=== PATIENT | female | born 1965 | race Caucasian/White ===

== ENCOUNTER 2020-03-21 14:55 | Observation (INO) | payer OTHER, SELFPAY ==
[2020-03-21 17:16] VITALS: BMI 27.2
[2020-03-21] MEDS ORDERED: Acetaminophen 650 MG Suppository PR PRN (17:28)
[2020-03-21] MEDS ORDERED: Guaifenesin DM 100-10/5 ML UDCUP PO PRN (17:28)
[2020-03-21] MEDS ORDERED: Ondansetron ODT 4 MG TAB PO PRN (17:28)
[2020-03-21] MEDS ORDERED: Ondansetron PF 4 MG/2 ML Vial IVP PRN (17:28)
[2020-03-21] MEDS ORDERED: Senokot S 8.6-50 MG TAB PO PRN (17:28)
[2020-03-21] MEDS ORDERED: Labetalol HCl 100 MG/20 ML VIAL SLOW IVP PRN (17:28)
[2020-03-21] MEDS: Acetaminophen 325 MG TAB PO PRN (18:25)
--- NOTE | 2020-03-21 18:35 | ULT ---
BILATERAL CAROTID DUPLEX ULTRASOUND: HISTORY: History of TIA and stroke TECHNIQUE: Grayscale, color-flow and spectral Doppler ultrasound imaging of the extracranial carotid artery syst ems and vertebral arteries was performed bilaterally. FINDINGS: There is mild intimal thickening and atherosclerotic disease involving the common carotid and interna l carotid arteries. The peak systolic velocity in the right ICA measures 84.6 cm/s. The peak systolic velocity in the ri ght CCA measures 65.3 cm/s. The peak systolic velocity in the left ICA measures 85.1 cm/s. The peak systolic velocity in the l eft CCA measures 82.0 cm/s. The right IC/CC ratio is1.30. The left IC/CC ratio is 1.04. Vertebral flow: antegrade, bilaterally. . IMPRESSION: No hemodynamically significant stenosis of Both ICAs.
--- NOTE | 2020-03-21 19:02 | PDOC.HHP ---
Hospitalist HPI - History of Present Illness Bilateral vision loss History of Present Illness: The patient is a 54-year-old female with a past medical history significant for iron deficiency anemia and depression that presents to the emergency department via personal vehicle for the above complaint. The patient reports acute vision loss this morning. She reports while sitting down at work at approximately 1045, she lost vision bilaterally. She reports that her eyes "went cross eyed". She says her vision was blurry, unable to make out any objects, but it was not dark/blackout. She reports it was painless. She denies any chemical exposures. She denies any known trauma. She denies any recent infection or drainage from her eyes. Denies any changes in speech, difficulty swallowing or focal motor deficit. She denies tinnitus, headache, fever, neck stiffness or jaw claudication. She reports that the episode lasted approximately 5 to 6 minutes and then resolved spontaneously. She went to nursing staff, her vital signs were stable. She was released back to full duty. She reports that brandon roximately 1 hour later, the same symptoms returned. She lost vision to both eyes. She went back to see the staff nurse, her blood pressure was elevated, although she does not recall the number. She called her and he drove her to [facility] for further evaluation. At the [facility], EKG sinus bradycardia, 58 bpm, no ST elevations. CT brain negative for any acute process. Labs unremarkable. Covid negative. Given full dose aspirin. ED Course: Direct admit. Hospitalist ROS - Review of Systems Constitutional: denies: fever, chills Eyes: reports: vision change (Bilateral, painless). denies: pain, conjunctivae inflammation, eyelid inflammation, redness ENT: denies: ear pain, ear discharge, nose discharge, nose congestion, mouth swelling Respiratory: denies: cough, dry, shortness of breath, SOB with excertion, pleuritic pain, sputum, wheezing Cardiovascular: denies: chest pain, palpitations, edema, light headedness Gastrointestinal: denies: nausea, vomiting, abdominal pain, diarrhea, constipation, hematochezia Genitourinary: denies: dysuria, frequency, hematuria Musculoskeletal: denies: neck pain, arm pain Skin: denies: bruising Neurological: denies: weakness, incoordination, change in speech, confusion All other systems reviewed; all pertinent +/- noted in HPI/Subj - Medication Medications: Active Medications Generic Name Dose Route Start Last Admin Trade Name Figueroaq PRN Reason Stop Dose Admin Acetaminophen 650 mg 03/21/20 17:28 03/21/20 18:25 Acetaminophen 325 Mg Tab PO 650 mg Q4H PRN Administration Headache/Fever/Mild Pain (1-3) Home medications: 1. Garlic 1000 mg p.o. daily 2. Ascorbic acid 1000 mg p.o. daily 3. Vitamin D3 2000 units p.o. daily 4. Celexa 20 mg p.o. nightly 5. Cyanocobalamin 1000 mcg p.o. daily 6. Ferrous sulfate 325 mg p.o. daily 7. Fish oil 1 capsule p.o. daily 8. Hydroxyzine 25 mg p.o. twice daily 9. Potassium chloride 10 mEq p.o. daily Allergies: Hydrocodone Hospitalist History - Past Medical History Source: patient, RN notes reviewed Heme/Onc: reports: Iron deficiency anemia Psych: reports: Anxiety - Past Surgical History Past Surgical History: reports: Hysterectomy (Partial), Other (Tummy tuck, breast lift) - Family History Family History: reports: cardiac disorder (Mother) - Social History Smoking Status: Current every day smoker Tobacco Type: cigarettes (2 packs/day times greater than 35 years, currently half pack per day x3 months) Alcohol: reports: None Drugs: reports: none Living Situation: With Family Occupation: Works Activity level: independent ambulation - Exam General Appearance: NAD, awake alert Eye: PERRL, anicteric sclera ENT: normocephalic atraumatic Neck: supple, symmetric, no JVD Heart: RRR, no murmur, no gallops, no rubs, normal peripheral pulses Respiratory: CTAB, no wheezes, no rales, no ronchi, normal chest expansion, no tachypnea Gastrointestinal: soft, non-tender, normal bowel sounds, no bruit, no guarding, no rigidity Extremities: no cyanosis, no edema Skin: no rashes Neurological: cranial nerve grossly intact, no focal deficits Musculoskeletal: normal tone, normal strength Psychiatric: normal affect, A&O x 3 Hospitalist Results - Labs Lab results: Sodium 143, potassium 4.1, chloride 106, BUN 16, creatinine 0.6, glucose 93, calcium 9.9 WBC 6.8, hemoglobin 12.2, hematocrit 34.1, platelets 326 PT 10.5, INR 0.9 Covid negative - EKG Interpretation EKG: Reviewed reviewed EKG at [facility] Sinus bradycardia 50 bpm, no ST elevations - Radiology Interpretation CT scan - head Status: report reviewed by me Additional Comment: Negative for acute process. Hospitalist H&P A/P - Problem (1) TIA (transient ischemic attack) Code(s): G45.9 - TRANSIENT CEREBRAL ISCHEMIC ATTACK, UNSPECIFIED Status: Acute (2) Bilateral visual loss Code(s): H54.3 - UNQUALIFIED VISUAL LOSS, BOTH EYES Status: Acute (3) Anxiety Code(s): F41.9 - ANXIETY DISORDER, UNSPECIFIED Status: Chronic (4) Iron deficiency anemia Code(s): D50.9 - IRON DEFICIENCY ANEMIA, UNSPECIFIED Status: Chronic - Plan Plan: 54/F with PMH anxiety and iron deficiency anemia presents for bilateral vision loss, resolved on admission. Transferred from [facility] hospital [facility]. Admit to stroke unit, observation status. Expected length of stay less than [address] brain negative for acute process. EKG sinus bradycardia, 50 bpm, no ST elevations. Labs unremarkable. Covid negative. Given aspirin at [facility]. #TIA Obtain MRI, carotid Doppler, echocardiogram. Continue aspirin and add statin. Consult neurology and stroke team. Check FLP, B12 and folate, TSH. Permissive hypertension. Neurochecks. #Bilateral vision loss Resolved upon admission. Likely related to problem #1. #Anxiety Denies SI/HI. Restart home dose Celexa. #Iron deficiency anemia Chronic, stable. Presented hemoglobin 12.2/hematocrit 34.1. Lovenox for DVT prophylaxis. Pepcid for GI prophylaxis. Full code. Discussed the case with Dr. Montoya.
[2020-03-21] MEDS: hydrOXYzine 25 MG TAB PO SCH (20:32)
[2020-03-21] MEDS: Famotidine 20 MG TAB PO SCH (20:32)
[2020-03-21] MEDS ORDERED: Atorvastatin Calcium 40 MG TAB PO SCH (21:00)
[2020-03-21] MEDS ORDERED: Citalopram 20 MG TAB PO SCH (21:00)
[2020-03-22] MEDS: Acetaminophen 325 MG TAB PO PRN (05:18)
[2020-03-22 05:44] LABS: Anion Gap 10 mmol/L (10-20); BUN (Urea Nitrogen) 17 mg/dL (9.8-20.1); Calc. Creatinine Clearance 120 mL/min (70-130); Calcium 9.3 mg/dL (7.8-10.44); Carbon Dioxide 28 mmol/L (22-29); Cardiac Risk 5.5 (Less than 4.5); Chloride 105 mmol/L (98-107); Cholesterol 230 mg/dl (< 200 Desired); Estimated GFR-MDRD 90; Glucose 94 mg/dL (70-105); HDL Cholesterol 42 mg/dL (>60 Neg Risk); LDL Cholesterol, Calculated 168 mg/dL; Potassium 3.9 mmol/L (3.5-5.1); Sodium 139 mmol/L (136-145); Triglycerides 99 mg/dL (Less than 150)
[2020-03-22 06:10] LABS: Thyroid Stimulating Hormone 1.6193 uIU/mL (0.35-4.94)
[2020-03-22 06:19] LABS: Band 2 % (5-11); Eosinophils 4 % (0-10); Hemoglobin 12.3 g/dL (12.0-16.0); Lymphocytes 68 % (21-51); MDiff Complete? YES; Mean Corpuscular HGB CONC 33.9 g/dL (32.0-36.0); Mean Corpuscular Hemoglobin 33.7 pg (27.0-31.0); Mean Corpuscular Volume 99.5 fL (78.0-98.0); Mean Platelet Volume 6.6 fL (7.4-10.4); Monocytes 6 % (0-10); Neutrophil 20 % (42-75); Platelet Count 315 thou/uL (130-400); RBC Distribution Width 10.9 % (11.5-14.5); Red Blood Cell (RBC) Count 3.64 mill/uL (4.20-5.40); White Blood Cell (WBC) Count 5.7 thou/uL (4.8-10.8)
--- NOTE | 2020-03-22 07:42 | PDOC.HOSPP ---
- Subjective Encounter Date: 03/22/20 Encounter Time: 09:00 Subjective: Patient with mild blurry vision on and off since yesterday. Seeing well now. No other symptoms. Just got back from MRI. - Objective Vital Signs & Weight: Vital Signs (12 hours) Temp Pulse Resp BP Pulse Ox 03/22/20 04:10 97.7 F 57 L 16 116/73 97 03/22/20 00:00 97.6 F 57 L 14 113/80 96 03/21/20 20:00 97.9 F 58 L 16 112/62 98 Weight Weight 179 lb 0.246 oz Result Diagrams: 03/22/20 04:46 03/22/20 04:46 Hospitalist ROS - Review of Systems Constitutional: denies: fever, chills Respiratory: denies: cough, shortness of breath Cardiovascular: denies: chest pain, palpitations Gastrointestinal: denies: nausea, vomiting, abdominal pain Genitourinary: denies: dysuria, hematuria Neurological: denies: weakness, numbness, change in speech, confusion, seizures - Medication Medications: Active Medications Generic Name Dose Route Start Last Admin Trade Name Freq PRN Reason Stop Dose Admin Acetaminophen 650 mg 03/21/20 17:28 03/22/20 05:18 Acetaminophen 325 Mg Tab PO 650 mg Q4H PRN Administration Headache/Fever/Mild Pain (1-3) Atorvastatin Calcium 80 mg 03/21/20 21:00 03/21/20 20:31 Atorvastatin Calcium 40 Mg Tab PO 80 mg HS KIM Administration Citalopram Hydrobromide 20 mg 03/21/20 21:00 03/21/20 20:32 Citalopram 20 Mg Tab PO 20 mg HS KIM Administration Famotidine 20 mg 03/21/20 21:00 03/21/20 20:32 Famotidine 20 Mg Tab PO 20 mg BID KIM Administration Hydroxyzine HCl 25 mg 03/21/20 21:00 03/21/20 20:32 Hydroxyzine 25 Mg Tab PO 25 mg BID KIM Administration - Exam General Appearance: NAD, awake alert ENT: moist mucosa Heart: RRR, no murmur, no gallops, no rubs Respiratory: CTAB, no wheezes, no rales, no ronchi Gastrointestinal: soft, non-tender, non-distended, normal bowel sounds Neurological: cranial nerve grossly intact, no focal deficits Psychiatric: normal affect, normal behavior, A&O x 3 Hosp A/P (1) Bilateral visual loss Code(s): H54.3 - UNQUALIFIED VISUAL LOSS, BOTH EYES Status: Acute (2) TIA (transient ischemic attack) Code(s): G45.9 - TRANSIENT CEREBRAL ISCHEMIC ATTACK, UNSPECIFIED Status: Acute (3) Anxiety Code(s): F41.9 - ANXIETY DISORDER, UNSPECIFIED Status: Chronic (4) Iron deficiency anemia Code(s): D50.9 - IRON DEFICIENCY ANEMIA, UNSPECIFIED Status: Chronic Plan: normal H/H here, does have some Folic Acid deficiency - Plan Patient with transient vision loss. Normal CT at outside facility. Carotid U/S with mild atherosclerosis but no stenosis. TC and LDL mildly elevated. MRI pending. Will continue ASA and Statin. Neurology consult. Likely home and outpatient f/u with ophthamology if MRI normal. DVT proph: Lovenox GI proph: Famotidine
[2020-03-22] MEDS ORDERED: Ferrous Sulfate 325 MG TAB PO SCH (08:00)
[2020-03-22] MEDS ORDERED: Potassium Chloride 10 MEQ TAB PO SCH (08:00)
[2020-03-22] MEDS ORDERED: Aspirin 81 mg Enteric Coated Tablet PO SCH (09:00)
[2020-03-22] MEDS ORDERED: Ascorbic Acid 500 mg Chewable Tablet PO SCH (09:00)
[2020-03-22] MEDS ORDERED: Fish Oil 1,000 MG CAP PO SCH (09:00)
[2020-03-22] MEDS ORDERED: FLU VACC QS2020-21(6MOS UP)/PF 60 MCG/0.5 ML SYRINGE IM ONE (09:00)
[2020-03-22] MEDS ORDERED: Enoxaparin Sodium 40 MG/0.4 ML SYRINGE SC SCH (09:00)
[2020-03-22] MEDS ORDERED: Cyanocobalamin (Vitamin B-12) 1,000 MCG TAB PO SCH (09:00)
[2020-03-22] MEDS ORDERED: Cholecalciferol 1,000 UNITS (25 MCG) TAB PO SCH (09:00)
[2020-03-22] MEDS: hydrOXYzine 25 MG TAB PO SCH (09:44)
[2020-03-22] MEDS: Famotidine 20 MG TAB PO SCH (09:46)
--- NOTE | 2020-03-22 10:00 | MRI ---
BRAIN MRI WITHOUT CONTRAST: DATE: 03/22/2020. COMPARISON: None. HISTORY: Stroke. TECHNIQUE: The axial diffusion weighted imaging demonstrates no evidence for acute infarction. FINDINGS: The axial gradient echo imaging demonstrates no evidence for intracranial hemorrhage. There is polypoid mucosal thickening within the alveolar recess of the maxillary sinus on the right. Arterial flow voids at the axial level of the skull base appear grossly unremarkable on the T2 weigh noel imaging. There are a few subcentimeter foci of T2 and FLAIR hyperintensity within the white jadyn er which may signify a minimal degree of small-vessel disease. Regional bone marrow signal intensity within normal limits. IMPRESSION: No evidence for acute infarction or intracranial hemorrhage. POS: [facility]
--- NOTE | 2020-03-22 11:39 | CON ---
NEUROLOGY CONSULTATION DATE OF CONSULTATION: 03/22/2020 REASON FOR CONSULTATION: Bilateral vision loss, rule out CVA. HISTORY OF PRESENT ILLNESS: Ms. Rangel is a 54-year-old female with medical history significant for iron-deficiency anemia and depression, presented to the emergency room because of an episode of loss of vision. Per patient, she was sitting down at work at approximately around 1045 hours on 03/21/2020 when she lost her vision. Per the patient, she went cross-eyed and then her vision was blurred and she saw shining lights in front of her eyes and followed by loss of vision. She denies any eye pain or pain on moving the eyes. She denies any fall, head injury, or trauma. The patient denies any focal weakness, nausea, vomiting, headache, chest pain, abdominal pain, recent exposure to COVID or sick contacts. She denies any problem with speech or swallowing associated with the episode. The episode resolved spontaneously at work, then she was released back to full duty, and one-hour later, she had the similar symptoms and her blood pressure was elevated Per the patient, she has been having mild spells of confusion off and on since the last few months. She called her from work and decided to come to the emergency room for further evaluation. In the emergency room, EKG showed sinus bradycardia and CT scan did not reveal any acute intracranial pathology. She was COVID negative. She was given aspirin and admitted for further evaluation. REVIEW OF SYSTEMS: All systems were reviewed and were negative except the pertinent positives and negatives mentioned in the HPI. MEDICATIONS: 1. Garlic 1000 mg p.o. daily. 2. Ascorbic acid 1000 mg p.o. daily. 3. Vitamin D3 of 2000 units p.o. daily. 4. Celexa 20 mg p.o. nightly. 5. Cyanocobalamin 1000 mcg p.o. daily. 6. Ferrous sulfate 325 mg p.o. daily. 7. Fish oil one capsule p.o. daily. 8. Hydroxyzine 25 mg p.o. daily. 9. Potassium chloride 10 mEq p.o. daily. ALLERGIES: HYDROCODONE. PAST MEDICAL HISTORY: 1. Iron-deficiency anemia. 2. Anxiety. 3. Depression. PAST SURGICAL HISTORY: 1. Partial hysterectomy. 2. Tummy tuck. FAMILY HISTORY: No family history significant for coronary artery disease. SOCIAL HISTORY: The patient is , lives with family. Smokes 2 packs per day for the last 35 years and is currently half pack per day for the last 3 months. Denies alcohol or illegal drug use. Home medications: 1. Garlic 1000 mg p.o. daily 2. Ascorbic acid 1000 mg p.o. daily 3. Vitamin D3 2000 units p.o. daily 4. Celexa 20 mg p.o. nightly 5. Cyanocobalamin 1000 mcg p.o. daily 6. Ferrous sulfate 325 mg p.o. daily 7. Fish oil 1 capsule p.o. daily 8. Hydroxyzine 25 mg p.o. twice daily 9. Potassium chloride 10 mEq p.o. daily Allergies: Hydrocodone Vital Signs & Weight: Vital Signs (12 hours) Temp Pulse Resp BP Pulse Ox 03/22/20 04:10 97.7 F 57 L 16 116/73 97 03/22/20 00:00 97.6 F 57 L 14 113/80 96 03/21/20 20:00 97.9 F 58 L 16 112/62 98 Weight Weight 179 lb 0.246 oz : Active Medications Generic Name Dose Route Start Last Admin Trade Name Freq PRN Reason Stop Dose Admin Acetaminophen 650 mg 03/21/20 17:28 03/22/20 05:18 Acetaminophen 325 Mg Tab PO 650 mg Q4H PRN Administration Headache/Fever/Mild Pain (1-3) Atorvastatin Calcium 80 mg 03/21/20 21:00 03/21/20 20:31 Atorvastatin Calcium 40 Mg Tab PO 80 mg HS KIM Administration Citalopram Hydrobromide 20 mg 03/21/20 21:00 03/21/20 20:32 Citalopram 20 Mg Tab PO 20 mg HS KIM Administration Famotidine 20 mg 03/21/20 21:00 03/21/20 20:32 Famotidine 20 Mg Tab PO 20 mg BID KIM Administration Hydroxyzine HCl 25 mg 03/21/20 21:00 03/21/20 20:32 Hydroxyzine 25 Mg Tab PO 25 mg BID KIM Administration PHYSICAL EXAMINATION: General Appearance: NAD, awake alert Eye: PERRL, anicteric sclera ENT: normocephalic atraumatic Neck: supple, symmetric, no JVD Heart: RRR, no murmur, no gallops, no rubs, normal peripheral pulses Respiratory: CTAB, no wheezes, no rales, no ronchi, normal chest expansion, no tachypnea Gastrointestinal: soft, non-tender, normal bowel sounds, no bruit, no guarding, no rigidity Extremities: no cyanosis, no edema Skin: no rashes Neurological: Mental status; the patient is alert and oriented to person, place, and time. Recent and remote memory intact. Speech is clear. Cranial nerves 2 through 12 intact. Motor; muscle tone and bulk are normal, strength 5/5 bilaterally. Sensory intact. Cerebellar, finger-nose testing intact. Gait deferred due to the patient's safety reason. DATA REVIEWED: I reviewed the labs, which essentially unremarkable. - EKG Interpretation EKG: Reviewed [facility] at [facility] Sinus bradycardia 50 bpm, no ST elevations - Radiology Interpretation CT scan - head Status: report reviewed by me Additional Comment: Negative for acute process. ASSESSMENT AND PLAN: (1) TIA (transient ischemic attack) Code(s): G45.9 - TRANSIENT CEREBRAL ISCHEMIC ATTACK, UNSPECIFIED Status: Acute (2) Bilateral visual loss Code(s): H54.3 - UNQUALIFIED VISUAL LOSS, BOTH EYES Status: Acute (3) Anxiety Code(s): F41.9 - ANXIETY DISORDER, UNSPECIFIED Status: Chronic (4) Iron deficiency anemia Code(s): D50.9 - IRON DEFICIENCY ANEMIA, UNSPECIFIED Status: Chronic Ms. Kelly Rangel is a 54-year-old woman who presented with 2 episodes of bilateral vision loss, which resolved on its own. Head CT reviewed, which was negative for acute intracranial pathology. MRI of the brain reviewed, which was negative for acute intracranial pathology. Most likely transient ischemic attack. Continue aspirin and high-intensity statin for secondary stroke prevention. Carotid Doppler reports reviewed, which was negative for hemodynamically significant stenosis. A 2D echo showed ejection fraction of 55% to 60%, no thrombus or patent foramen ovale. Strict control of blood pressure and blood glucose. Neuro checks every 4 hours. EEG to evaluate for mild episodes of confusion. Continue home medications. PT/OT/Speech. Continue medical management per primary team. Consider ophthalmology input regarding vision loss as outpatient. We will continue to follow. Thank you for the consult. Job ID: [id number] [facility] CENTERHank
[2020-03-22 11:44] VITALS: TEMP 97.7
[2020-03-22] MEDS ORDERED: Folic Acid 1 MG TAB PO SCH (14:15)
--- NOTE | 2020-03-22 14:16 | PDOC.EEG ---
Neurology EEG Report - Report Report: This EEG was performed using 24 channel [employer] video digital EEG machine with 24 disc electrode. This was an extended 2-hour 4 minutes of inpatient video EEG recording. Digital analysis of the EEG was done for spike and seizure detection which revealed no abnormalities. Background: The posterior background rhythm is 9 to 10 Hz. The background rhythm attenuates with eye opening enhances with eye closure. Hyperventilation: Not performed. Photic stimulation: Bioccipital symmetric driving response is observed Sleep: Drowsiness is observed. EEG diagnosis: Normal awake and drowsy EEG.
[2020-03-22 15:42] VITALS: BP 120/64
[2020-03-23] MEDS ORDERED: Folic Acid 1 MG TAB PO SCH (09:00)
--- NOTE | 2020-03-25 08:33 | DIS ---
DATE OF ADMISSION: 03/21/2020 DATE OF DISCHARGE: 03/22/2020 PRIMARY CARE PHYSICIAN: Lynnette Whatley. REASON FOR ADMISSION: TIA. DIAGNOSES AT DISCHARGE: 1. Bilateral vision loss, resolved. 2. Transient ischemic attack. 3. Anxiety. 4. History of iron deficiency anemia, now resolved, but with some folic acid deficiency. PROCEDURES: 1. Carotid ultrasound showing some mild atherosclerotic disease in bilateral common and internal carotid arteries, but with no significant stenosis. 2. MRI of the brain without contrast showing no evidence for acute infarction or intracranial hemorrhage. 3. EEG showing normal awake and drowsy EEG. 4. Echocardiogram showing ejection fraction of 50% to 55% with normal diastolic function. No other significant abnormalities. CONSULTATION: Neurology, Dr. Camacho. SUMMARY OF HOSPITAL COURSE: This is a 54-year-old female, who presented to an outside stand-alone emergency room secondary to bilateral vision loss. This happened first on the day of admission around 10:45 in the morning. She says that she became cross-eyed, her vision went blurry, she was unable to make any objects out, with no pain at the time, eventually resolved after about 5 to 6 minutes. Then an hour later, the same symptoms returned. She had some elevated blood pressure at that time when she went to the nurse's station and then she was driven to the ER by her . In the ER, she had a CT brain, was negative. Labs were negative. COVID was negative. She was given a full dose aspirin over there. Her EKG was normal except for some mild bradycardia. She was transferred to the hospital here, had above studies done. Dr. Camacho was consulted with Neurology. The patient's fasting lipid profile was checked with a cholesterol of 230 and an LDL of 168. Due to her history of anemia, she had vitamin B12 and folic acid checked. The vitamin B12 was elevated, but folic acid was low at 5.5. The remainder of her labs were all normal. The patient had no further symptoms during her hospitalization. She had normal eye and retinal exams in the emergency room, and had a normal MRI, normal EEG, she was diagnosed with TIA by Neurology, was recommended to stay on a baby aspirin a day and high-dose atorvastatin and follow up as an outpatient with her primary care doctor. She is also recommended to follow up with an tow operator. DISCHARGE MANAGEMENT: Discharged home. FOLLOWUP: Follow up with primary care physician next week and she is to call tow operator on Wednesday and set up a followup appointment. ACTIVITY: As tolerated. DIET: Healthy heart diet. DISCHARGE MEDICATIONS: 1. Aspirin 81 mg daily, 30 tablets dispensed. 2. Atorvastatin 80 mg daily, 30 tablets dispensed. 3. Folic acid 1 mg daily, 14 tablets dispensed. 4. Continue vitamin C 1000 mg daily. 5. Vitamin D3, 2000 units daily. 6. Celexa 20 mg at night. 7. Vitamin B12 of 1000 mcg daily. 8. Ferrous sulfate 325 mg daily. 9. Fish oil 1200 mg daily. 10. Atarax 25 mg twice a day. 11. Potassium chloride 10 mEq daily. 12. Garlic 1000 mg daily. Job ID: [id number]
== END 2020-03-22 16:12 | disposition home or self-care (01) ==
LOC: 2SE 14:55
PROVIDERS: ADMIT Emergency Medicine; ATTEND Emergency Medicine
DX: G45.9 Transient cerebral ischemic attack, unspecified (principal); F41.9 Anxiety disorder, unspecified; D50.9 Iron deficiency anemia, unspecified; E53.8 Deficiency of other specified B group vitamins; F17.210 Nicotine dependence, cigarettes, uncomplicated; F32.9 Major depressive disorder, single episode, unspecified; Z79.899 Other long term (current) drug therapy; Z88.5 Allergy status to narcotic agent; Z20.828 Contact with and (suspected) exposure to other viral communicable diseases
CPT/HCPCS: 36415; 70551; 80048; 80061; 82607; 82746; 84443; 85025; 90471; 90662; 90732; 93306; 93880; 95712; 95819; 95957; 96372; G0008; G0009; G0378; J1650

== ENCOUNTER 2022-09-02 14:54 | Emergency (ER) | payer SELFPAY ==
[2022-09-02 15:36] LABS: #Basophils 0.1 thou/uL (0.0-0.2); #Eosinphils 0.1 thou/uL (0.0-0.7); #Lymphocytes 4.8 thou/uL (1.20-3.40); #Monocytes 0.7 thou/uL (0.11-0.59); #Neutrophils 4.1 thou/uL (1.40-6.50); %Basophils 1.1 % (0.0-1.0); %Eosinophils 0.9 % (0.0-10.0); %Lymphocytes 48.9 % (21.0-51.0); %Monocytes 6.7 % (0.0-10.0); %Neutrophils 42.4 % (42.0-75.0); Hemoglobin 14.7 g/dL (12.0-16.0); Mean Corpuscular HGB CONC 34.6 g/dL (32.0-36.0); Mean Corpuscular Hemoglobin 32.7 pg (27.0-31.0); Mean Corpuscular Volume 94.3 fl (78.0-98.0); Mean Platelet Volume 7.2 fL (7.4-10.4); Platelet Count 353 10x3/uL (130-400); RBC Distribution Width 11.2 % (11.5-14.5); Red Blood Cell (RBC) Count 4.51 mill/uL (4.20-5.40); White Blood Cell (WBC) Count 9.8 10x3/uL (4.8-10.8)
[2022-09-02 15:58] LABS: ALT (SGPT) 41 U/L (8-55); AST (SGOT) 24 U/L (5-34); Albumin 4.8 g/dL (3.5-5.0); Alkaline Phosphatase 96 U/L (40-110); Anion Gap 16 mmol/L (10-20); BUN (Urea Nitrogen) 10 mg/dL (9.8-20.1); Bilirubin, Total 0.5 mg/dL (0.2-1.2); CK (CPK) 181 U/L (29-168); Calc. Creatinine Clearance 0 mL/min (70-130); Calcium 10.3 mg/dL (7.8-10.44); Carbon Dioxide 23 mmol/L (22-29); Chloride 104 mmol/L (98-107); Estimated GFR 79; Globulin 3.1 g/dL (2.4-3.5); Glucose 89 mg/dL (70-105); Lipase 34 U/L (8-78); Protein, Total 7.9 g/dL (6.0-8.3); Sodium 139 mmol/L (136-145)
[2022-09-02] MEDS ORDERED: Aspirin Chewable 81 MG TAB ONE (16:13)
[2022-09-02] MEDS ORDERED: LORazepam 2 MG/ML SYR.(CARPUJECT) ONE (16:13)
[2022-09-02] MEDS ORDERED: Nitroglycerin 2% Ointment 1 INCH/1 GM Packet ONE (16:13)
== END 2022-09-02 17:20 | disposition home or self-care (01) ==
LOC: ERS 14:54
DX: R07.2 Precordial pain (principal); I10 Essential (primary) hypertension; F17.210 Nicotine dependence, cigarettes, uncomplicated
CPT/HCPCS: 71045; 80053; 82550; 83690; 84484; 85025; 93005; 96374; J2060